=== PATIENT | male | born 1975 | race Caucasian/White ===

== ENCOUNTER 2021-03-18 13:41 | Emergency (ER) | payer OTHER ==
[~2021-03-18] VITALS: Ht 182.9 cm; Wt 103.2 kg
[2021-03-18 16:02] VITALS: BP 135/68
== END 2021-03-18 16:03 | disposition home or self-care (01) ==
LOC: EMS 13:44
DX: M25.571 Pain in right ankle and joints of right foot (principal); Z88.0 Allergy status to penicillin; Z88.1 Allergy status to other antibiotic agents
CPT/HCPCS: 99281; Z7502